=== PATIENT | female | born 1995 | race African-American/Black ===

== ENCOUNTER 2021-03-26 08:57 | Inpatient (IN) | payer MEDICAID ==
[~2021-03-26] VITALS: Ht 160 cm; Wt 84.8 kg
[2021-03-26 10:44] LABS: BASOPHILS % 0.9 % (0.0-2.0); EOSINOPHILS % 0.8 % (0.0-5.0); HEMATOCRIT. 39.9 % (36.0-48.0); HEMOGLOBIN. 13.1 g/dL (12.0-16.0); LYMPHOCYTES % 41.7 % (20.0-50.0); MEAN CORPUSCULAR HEMOGLOBIN 28.8 pg (28.0-32.0); MEAN CORPUSCULAR VOLUME 87.5 fL (81.0-99.0); MEAN PLATELET VOLUME 8.5 fl (7.4-10.4); NEUTROPHILS % 47.6 % (40.0-76.0); PLATELET 337 x1000/uL (130-400); RED BLOOD CELL COUNT 4.56 mill/uL (4.2-5.4); RED CELL DISTRIBUTION WIDTH 13.1 % (11.6-14.6)
[2021-03-26 10:49] LABS: CHLORIDE 105 mEq/L (98-107)
[2021-03-26 10:50] LABS: INR 0.9; PROTHROMBIN TIME 10.1 sec (9.6-11.0)
[2021-03-26 11:15] LABS: HCG SCREEN NEGATIVE
[2021-03-26] MEDS ORDERED: ASPIRIN 325MG EC TABLET PO ONE (11:45)
[2021-03-26] MEDS ORDERED: ONDANSETRON HCL 4MG/2ML INJ IV PRN (17:00)
[2021-03-26] MEDS ORDERED: IPRATROPIUM/ALBUTEROL 0.5-3(2.5)MG/3ML NEB NEB PRN (17:00)
[2021-03-26] MEDS ORDERED: ENOXAPARIN 40MG/0.4ML SYR SUBCUT SCH (17:00)
[2021-03-26] MEDS ORDERED: MORPHINE SULFATE 2 MG/ML CPJ (NOT FOR IM USE) IV PRN (17:00)
[2021-03-26] MEDS ORDERED: LORAZEPAM 2MG/ML CPJ IV PRN (17:00)
[2021-03-26] MEDS ORDERED: CLONIDINE 0.1MG TABLET PO PRN (17:00)
[2021-03-26] MEDS ORDERED: NA PHOS,M-B/NA PHOS,DI-BA ENEMA 118ML PR PRN (17:00)
[2021-03-26] MEDS ORDERED: MAGNESIUM/ALUMINUM HYDROXIDE/SIMETHICONE 30ML UDC PO PRN (17:00)
[2021-03-26] MEDS ORDERED: DOCUSATE SODIUM 100MG CAPSULE PO PRN (17:00)
[2021-03-26] MEDS ORDERED: DIPHENHYDRAMINE 50MG/ML VIAL IV PRN (17:00)
[2021-03-26] MEDS ORDERED: ACETAMINOPHEN 325MG TABLET PO PRN (17:00)
[2021-03-26] MEDS ORDERED: GUAIFENESIN 200MG/10ML SUGAR FREE UDC PO PRN (17:00)
[2021-03-26 17:21] LABS: CHLORIDE 106 mEq/L (98-107)
[2021-03-26] MEDS: SODIUM CHLORIDE 0.45% 1,000 ML IV SCH (18:03)
[2021-03-27 00:20] VITALS: BP 106/71
[2021-03-27 00:34] VITALS: BP 106/71
[2021-03-27] MEDS: SODIUM CHLORIDE 0.45% 1,000 ML IV SCH (01:33)
[2021-03-27 04:00] VITALS: BP 108/70
[2021-03-27] MEDS: HYDROCODONE/ACETAMINOPHEN 5/325MG TABLET PO PRN ×2 (08:00→12:36)
[2021-03-27 08:24] VITALS: BP 115/58
[2021-03-27] MEDS ORDERED: ASPIRIN 81MG EC TABLET PO SCH (09:00)
[2021-03-27 12:47] VITALS: BP 114/75
[2021-03-27] MEDS ORDERED: NALOXONE HCL 0.4MG/ML VIAL IV PRN (14:15)
== END 2021-03-27 13:20 | disposition home or self-care (01) | DRG 422 ==
LOC: ER 08:57 → MICUSO 14:03 → EDBEDREQ 16:23 → 7EST 22:16
PROVIDERS: ADMIT Internal Medicine; ATTEND Internal Medicine
DX: E86.0 Dehydration (principal); G45.9 Transient cerebral ischemic attack, unspecified; Z20.822 Contact with and (suspected) exposure to COVID-19; F41.0 Panic disorder [episodic paroxysmal anxiety]; R68.84 Jaw pain; Z86.73 Personal history of transient ischemic attack (TIA), and cerebral infarction without residual deficits; E66.3 Overweight; Z68.33 Body mass index [BMI] 33.0-33.9, adult
CPT/HCPCS: 36415; 70551; 71045; 80048; 80053; 83880; 84484; 84703; 85025; 87426; 93005; 93306; 99285; J2270

== ENCOUNTER 2022-08-28 16:41 | Emergency (ER) | payer MEDICAID ==
[~2022-08-28] VITALS: Ht 160 cm; Wt 77.0 kg
[2022-08-28 17:00] VITALS: BP 99/57
[2022-08-28] MEDS ORDERED: ACETAMINOPHEN 325MG TABLET PO ONE (22:15)
[2022-08-28] MEDS ORDERED: IBUPROFEN 400MG TABLET PO ONE (22:15)
[2022-08-28] MEDS ORDERED: METH-653 MT (23:15)
[2022-08-28] MEDS ORDERED: IBUP-2028 MT (23:15)
== END 2022-08-28 23:59 | disposition home or self-care (01) ==
LOC: ER 21:31
DX: M25.511 Pain in right shoulder (principal)
CPT/HCPCS: 73030; 73120; 99284